=== PATIENT | male | born 1935 | race African-American/Black ===

== ENCOUNTER 2016-11-04 09:39 | Inpatient (IN) | payer MEDICARE, MEDICAID ==
[~2016-11-04] VITALS: Ht 165.1 cm; Wt 95.0 kg
[~2016-11-04 09:39] MED LIST: ATOR10TA PO; FERR-63 PO; FURO-151 PO; PIOG30TA2 PO; POTA10TA15 PO
[2016-11-04] MEDS ORDERED: SODIUM CHLORIDE 0.9% 500 ML IV ONE (10:04)
[2016-11-04 11:01] LABS: BASOPHILS % 0.6 % (0.0-2.0); EOSINOPHILS % 1.6 % (0.0-5.0); HEMATOCRIT. 22.9 % (42.0-52.0); HEMOGLOBIN. 7.4 g/dL (14.0-18.0); LYMPHOCYTES % 12.9 % (20.0-50.0); MEAN CORPUSCULAR HEMOGLOBIN 28.4 pg (28.0-32.0); MEAN CORPUSCULAR HGB CONC 32.5 g/dL (31.0-37.0); MEAN CORPUSCULAR VOLUME 87.3 fL (80.0-94.0); MEAN PLATELET VOLUME 7.2 fl (7.4-10.4); MONOCYTES % 9.5 % (2.0-8.0); NEUTROPHILS % 75.4 % (40.0-76.0); PLATELET 266 x1000/uL (130-400); RED BLOOD CELL COUNT 2.62 mill/uL (4.7-6.1); RED CELL DISTRIBUTION WIDTH 16.1 % (11.6-14.6); WHITE BLOOD COUNT 3.9 x1000/uL (4.5-11.0)
[2016-11-04 11:09] LABS: INR 1.2; PROTHROMBIN TIME 12.1 sec
[2016-11-04 11:15] LABS: ALANINE AMINOTRANSFERASE 11 IU/L (13-61); ALBUMIN 2.4 g/dL (3.4-5.0); ANION GAP 10; CALCIUM 9.7 mg/dL (8.5-10.1); CARBON DIOXIDE 33 mEq/L (21-32); CHLORIDE 103 mEq/L (98-107); INDEX HEMOLYSI 1 (1-3); INDEX ICTERIC 1 (1-4); INDEX LIPEMIC 1 (1-3); LIPASE 67 IU/L (73-393); UREA NITROGEN BLOOD 8 mg/dL (7-21); eGFR > 60 mL/min (>60)
[2016-11-04 12:29] LABS: CLARITY URINE TURBID (CLEAR); GLUCOSE URINE NEGATIVE (NEGATIVE); KETONES URINE NEGATIVE (NEGATIVE); LEUKOCYTE ESTERASE URINE 1+ (NEGATIVE); NITRITE URINE POSITIVE (NEGATIVE); OCCULT BLOOD URINE 2+ (NEGATIVE); PH URINE 5.5 (4.5-8.0); PROTEIN URINE 2+ (NEGATIVE); SPECIFIC GRAVITY URINE 1.028 (1.005-1.030)
[2016-11-04 12:31] LABS: COLOR URINE BLOODY (YELLOW)
[2016-11-04 12:40] LABS: RBC URINE TNTC /hpf (0-2)
[2016-11-04 12:41] LABS: BACTERIA URINE 4+; SQUAMOUS EPITHELIAL CELL URINE NONE SEEN /lpf (RARE/1+)
[2016-11-04] MEDS ORDERED: CEFTRIAXONE 1 G PREMIX 50 ML IV ONE (13:30)
[2016-11-04] MEDS ORDERED: LEVOFLOXACIN 500MG PREMIX 100 ML IV SCH (16:30)
[2016-11-04] MEDS: HYDROCODONE/ACETAMINOPHEN 5/325MG TABLET PO PRN ×2 (16:45→22:26)
[2016-11-04] MEDS: DEXT 5%/0.45% NACL KCL 10MEQ/L 1,000 ML IV SCH (18:16)
[2016-11-04 20:30] VITALS: BP 112/67
[2016-11-04] MEDS ORDERED: DEXTROSE 50% WATER 50ML SYRINGE IV PRN (22:00)
[2016-11-05] VITALS (11 sets, daily range): BP systolic 95–130; BP diastolic 59–81
[2016-11-05] MEDS: LEVOFLOXACIN 500MG PREMIX 100 ML IV SCH (03:04)
[2016-11-05] MEDS: HYDROCODONE/ACETAMINOPHEN 5/325MG TABLET PO PRN ×3 (03:31→23:19)
[2016-11-05] MEDS: BLOOD SUGAR DIAGNOSTIC STRIP TEST SCH ×4 (06:14→21:45)
[2016-11-05] MEDS: DEXT 5%/0.45% NACL KCL 10MEQ/L 1,000 ML IV SCH (06:14)
[2016-11-05 06:44] LABS: CHLORIDE 102 mEq/L (98-107); INDEX HEMOLYSI 3 (1-3); INDEX ICTERIC 1 (1-4); INDEX LIPEMIC 1 (1-3)
[2016-11-05 06:52] LABS: ALANINE AMINOTRANSFERASE 12 IU/L (13-61); ALBUMIN 2.7 g/dL (3.4-5.0); ANION GAP 14; CALCIUM 9.7 mg/dL (8.5-10.1); CARBON DIOXIDE 28 mEq/L (21-32); UREA NITROGEN BLOOD 12 mg/dL (7-21); eGFR > 60 mL/min (>60)
[2016-11-05] MEDS: INSULIN LISPRO 100 UNITS/ML SUBCUT SCH ×4 (07:07→21:00)
[2016-11-05 08:39] LABS: BASOPHILS % 0.9 % (0.0-2.0); EOSINOPHILS % 0.6 % (0.0-5.0); HEMATOCRIT. 31.3 % (42.0-52.0); HEMOGLOBIN. 10.3 g/dL (14.0-18.0); LYMPHOCYTES % 7.6 % (20.0-50.0); MEAN CORPUSCULAR HEMOGLOBIN 28.6 pg (28.0-32.0); MEAN CORPUSCULAR VOLUME 86.6 fL (80.0-94.0); MONOCYTES % 6.6 % (2.0-8.0); NEUTROPHILS % 84.3 % (40.0-76.0); RED BLOOD CELL COUNT 3.61 mill/uL (4.7-6.1); RED CELL DISTRIBUTION WIDTH 16.9 % (11.6-14.6); WHITE BLOOD COUNT 8.1 x1000/uL (4.5-11.0)
[2016-11-05 08:42] LABS: DIFFERENTIAL COMMENT 1
[2016-11-05 10:46] LABS: MEAN PLATELET VOLUME 8.2 fl (7.4-10.4); PLATELET 269 x1000/uL (130-400)
[2016-11-05] MEDS ORDERED: DEXT 5%/0.45% NACL KCL 10MEQ/L 1,000 ML IV SCH (23:00)
[2016-11-06] VITALS: BP 124/71
[2016-11-06] MEDS: LEVOFLOXACIN 500MG PREMIX 100 ML IV SCH (01:32)
[2016-11-06 04:00] VITALS: BP 120/70
[2016-11-06 06:48] LABS: BASOPHILS % 0.2 % (0.0-2.0); EOSINOPHILS % 1.4 % (0.0-5.0); HEMATOCRIT. 27.2 % (42.0-52.0); HEMOGLOBIN. 8.8 g/dL (14.0-18.0); LYMPHOCYTES % 7.9 % (20.0-50.0); MEAN CORPUSCULAR HEMOGLOBIN 27.7 pg (28.0-32.0); MEAN CORPUSCULAR HGB CONC 32.3 g/dL (31.0-37.0); MEAN CORPUSCULAR VOLUME 85.7 fL (80.0-94.0); MEAN PLATELET VOLUME 7.3 fl (7.4-10.4); MONOCYTES % 7.1 % (2.0-8.0); NEUTROPHILS % 83.4 % (40.0-76.0); PLATELET 269 x1000/uL (130-400); RED BLOOD CELL COUNT 3.18 mill/uL (4.7-6.1); RED CELL DISTRIBUTION WIDTH 16.2 % (11.6-14.6); WHITE BLOOD COUNT 5.8 x1000/uL (4.5-11.0)
[2016-11-06] MEDS: BLOOD SUGAR DIAGNOSTIC STRIP TEST SCH ×4 (06:53→21:29)
[2016-11-06] MEDS: INSULIN LISPRO 100 UNITS/ML SUBCUT SCH ×4 (06:54→21:29)
[2016-11-06 07:07] LABS: ALANINE AMINOTRANSFERASE 12 IU/L (13-61); ALBUMIN 2.5 g/dL (3.4-5.0); ANION GAP 11; CARBON DIOXIDE 30 mEq/L (21-32); CHLORIDE 102 mEq/L (98-107); INDEX HEMOLYSI 1 (1-3); INDEX ICTERIC 1 (1-4); INDEX LIPEMIC 1 (1-3); UREA NITROGEN BLOOD 13 mg/dL (7-21); eGFR > 60 mL/min (>60)
[2016-11-06 10:01] VITALS: BP 113/65
[2016-11-06] MEDS ORDERED: POTASSIUM CHLORIDE 20MEQ TABLET SR PO SCH (11:45)
[2016-11-06] MEDS: TAMSULOSIN HCL 0.4MG SR CAPSULE PO SCH (12:29)
[2016-11-06 12:37] VITALS: BP 111/75
[2016-11-06 16:10] VITALS: BP 102/65
[2016-11-06 20:00] VITALS: BP 99/62
[2016-11-06] MEDS: ACETAMINOPHEN 325MG TABLET PO PRN (22:17)
[2016-11-07] VITALS: BP 136/81
[2016-11-07] MEDS: LEVOFLOXACIN 500MG PREMIX 100 ML IV SCH (02:56)
[2016-11-07 04:00] VITALS: BP 130/75
[2016-11-07 06:18] LABS: BASOPHILS % 0.4 % (0.0-2.0); EOSINOPHILS % 1.2 % (0.0-5.0); HEMATOCRIT. 26.2 % (42.0-52.0); HEMOGLOBIN. 8.6 g/dL (14.0-18.0); LYMPHOCYTES % 12.8 % (20.0-50.0); MEAN CORPUSCULAR HEMOGLOBIN 27.8 pg (28.0-32.0); MEAN CORPUSCULAR HGB CONC 32.6 g/dL (31.0-37.0); MEAN CORPUSCULAR VOLUME 85.4 fL (80.0-94.0); MEAN PLATELET VOLUME 7.2 fl (7.4-10.4); MONOCYTES % 8.4 % (2.0-8.0); NEUTROPHILS % 77.2 % (40.0-76.0); PLATELET 245 x1000/uL (130-400); RED BLOOD CELL COUNT 3.07 mill/uL (4.7-6.1); RED CELL DISTRIBUTION WIDTH 16.7 % (11.6-14.6); WHITE BLOOD COUNT 5.2 x1000/uL (4.5-11.0)
[2016-11-07 07:15] LABS: ALANINE AMINOTRANSFERASE 15 IU/L (13-61); ALBUMIN 2.4 g/dL (3.4-5.0); ANION GAP 10; CARBON DIOXIDE 30 mEq/L (21-32); CHLORIDE 102 mEq/L (98-107); INDEX HEMOLYSI 1 (1-3); INDEX ICTERIC 1 (1-4); INDEX LIPEMIC 1 (1-3); MAGNESIUM 1.7 mg/dL (1.8-2.4); UREA NITROGEN BLOOD 14 mg/dL (7-21); eGFR > 60 mL/min (>60)
[2016-11-07] MEDS: BLOOD SUGAR DIAGNOSTIC STRIP TEST SCH ×3 (07:24→21:00)
[2016-11-07] MEDS: INSULIN LISPRO 100 UNITS/ML SUBCUT SCH ×3 (07:24→21:00)
[2016-11-07 08:00] VITALS: BP 108/66
[2016-11-07] MEDS: TAMSULOSIN HCL 0.4MG SR CAPSULE PO SCH (09:06)
[2016-11-07] MEDS ORDERED: POTASSIUM CHLORIDE 20MEQ TABLET SR PO SCH (09:45)
[2016-11-07] MEDS ORDERED: BISACODYL 10MG SUPP PR PRN (09:45)
[2016-11-07] MEDS ORDERED: LACTULOSE 20G/30ML UDC PO PRN (09:45)
[2016-11-07] MEDS ORDERED: MAGNESIUM GLUCONATE 500MG TABLET PO SCH (11:00)
[2016-11-07] MEDS ORDERED: SODIUM CHLORIDE 0.9% 10ML VIAL ONE (12:24)
[2016-11-07] MEDS ORDERED: IOHEXOL-300 100 ML BOTTLE ONE (12:24)
[2016-11-07 12:45] VITALS: BP 107/71
[2016-11-07 16:00] VITALS: BP 105/65
[2016-11-07] MEDS: HYDROMORPHONE HCL/PF 2MG/ML CPJ IV PRN (16:31)
[2016-11-07 20:00] VITALS: BP 107/69
[2016-11-08] VITALS: BP 119/82
[2016-11-08] MEDS: LEVOFLOXACIN 500MG PREMIX 100 ML IV SCH (02:57)
[2016-11-08 04:00] VITALS: BP 118/68
[2016-11-08 06:44] LABS: BASOPHILS % 0.5 % (0.0-2.0); EOSINOPHILS % 1.8 % (0.0-5.0); HEMATOCRIT. 27.7 % (42.0-52.0); LYMPHOCYTES % 11.3 % (20.0-50.0); MEAN CORPUSCULAR HEMOGLOBIN 27.7 pg (28.0-32.0); MEAN CORPUSCULAR HGB CONC 32.4 g/dL (31.0-37.0); MEAN CORPUSCULAR VOLUME 85.5 fL (80.0-94.0); MEAN PLATELET VOLUME 7.4 fl (7.4-10.4); MONOCYTES % 7.9 % (2.0-8.0); NEUTROPHILS % 78.5 % (40.0-76.0); PLATELET 249 x1000/uL (130-400); RED BLOOD CELL COUNT 3.24 mill/uL (4.7-6.1); RED CELL DISTRIBUTION WIDTH 16.5 % (11.6-14.6); WHITE BLOOD COUNT 5.4 x1000/uL (4.5-11.0)
[2016-11-08] MEDS: BLOOD SUGAR DIAGNOSTIC STRIP TEST SCH ×3 (06:52→21:00)
[2016-11-08] MEDS: INSULIN LISPRO 100 UNITS/ML SUBCUT SCH ×3 (07:21→21:00)
[2016-11-08 07:22] LABS: ALANINE AMINOTRANSFERASE 21 IU/L (13-61); ALBUMIN 2.6 g/dL (3.4-5.0); ANION GAP 12; CARBON DIOXIDE 29 mEq/L (21-32); CHLORIDE 103 mEq/L (98-107); INDEX HEMOLYSI 1 (1-3); INDEX ICTERIC 1 (1-4); INDEX LIPEMIC 1 (1-3); MAGNESIUM 1.9 mg/dL (1.8-2.4); UREA NITROGEN BLOOD 12 mg/dL (7-21); eGFR > 60 mL/min (>60)
[2016-11-08 08:45] VITALS: BP 113/78
[2016-11-08] MEDS: TAMSULOSIN HCL 0.4MG SR CAPSULE PO SCH (09:50)
[2016-11-08] MEDS: HYDROMORPHONE HCL/PF 2MG/ML CPJ IV PRN (09:52)
[2016-11-08 12:48] VITALS: BP 111/75
[2016-11-08 16:35] VITALS: BP 103/66
[2016-11-08 20:00] VITALS: BP 108/62
[2016-11-09] VITALS: BP 113/70
[2016-11-09] MEDS: LEVOFLOXACIN 500MG PREMIX 100 ML IV SCH (03:10)
[2016-11-09 04:00] VITALS: BP 114/73
[2016-11-09 06:03] LABS: BASOPHILS % 0.2 % (0.0-2.0); HEMATOCRIT. 25.2 % (42.0-52.0); HEMOGLOBIN. 8.2 g/dL (14.0-18.0); LYMPHOCYTES % 9.2 % (20.0-50.0); MEAN CORPUSCULAR HEMOGLOBIN 27.8 pg (28.0-32.0); MEAN CORPUSCULAR HGB CONC 32.4 g/dL (31.0-37.0); MEAN CORPUSCULAR VOLUME 85.8 fL (80.0-94.0); MEAN PLATELET VOLUME 7.2 fl (7.4-10.4); NEUTROPHILS % 80.6 % (40.0-76.0); PLATELET 211 x1000/uL (130-400); RED BLOOD CELL COUNT 2.93 mill/uL (4.7-6.1); RED CELL DISTRIBUTION WIDTH 16.4 % (11.6-14.6); WHITE BLOOD COUNT 5.4 x1000/uL (4.5-11.0)
[2016-11-09 06:39] LABS: CHLORIDE 102 mEq/L (98-107); INDEX HEMOLYSI 1 (1-3); INDEX ICTERIC 1 (1-4); INDEX LIPEMIC 1 (1-3)
[2016-11-09 06:46] LABS: ALANINE AMINOTRANSFERASE 20 IU/L (13-61); ALBUMIN 2.4 g/dL (3.4-5.0); ANION GAP 11; CARBON DIOXIDE 29 mEq/L (21-32); MAGNESIUM 1.8 mg/dL (1.8-2.4); UREA NITROGEN BLOOD 12 mg/dL (7-21); eGFR > 60 mL/min (>60)
[2016-11-09] MEDS: BLOOD SUGAR DIAGNOSTIC STRIP TEST SCH ×4 (07:20→21:02)
[2016-11-09] MEDS: INSULIN LISPRO 100 UNITS/ML SUBCUT SCH ×4 (07:50→21:00)
[2016-11-09 08:00] VITALS: BP 114/74
[2016-11-09] MEDS: TAMSULOSIN HCL 0.4MG SR CAPSULE PO SCH (09:06)
[2016-11-09 12:00] VITALS: BP 138/85
[2016-11-09 16:00] VITALS: BP 126/80
[2016-11-09 20:00] VITALS: BP 114/75
[2016-11-10 00:15] VITALS: BP 101/58
[2016-11-10] MEDS: ATENOLOL 25MG TABLET PO SCH ×4 (00:15→17:12)
[2016-11-10] MEDS: LEVOFLOXACIN 500MG PREMIX 100 ML IV SCH (02:54)
[2016-11-10 04:00] VITALS: BP 110/67
[2016-11-10] MEDS: BLOOD SUGAR DIAGNOSTIC STRIP TEST SCH ×4 (06:19→21:12)
[2016-11-10] MEDS: INSULIN LISPRO 100 UNITS/ML SUBCUT SCH ×4 (06:28→21:12)
[2016-11-10 06:33] LABS: BASOPHILS % 0.4 % (0.0-2.0); EOSINOPHILS % 1.3 % (0.0-5.0); HEMATOCRIT. 25.2 % (42.0-52.0); HEMOGLOBIN. 8.2 g/dL (14.0-18.0); MEAN CORPUSCULAR HEMOGLOBIN 27.7 pg (28.0-32.0); MEAN CORPUSCULAR HGB CONC 32.5 g/dL (31.0-37.0); MEAN CORPUSCULAR VOLUME 85.3 fL (80.0-94.0); MEAN PLATELET VOLUME 7.2 fl (7.4-10.4); MONOCYTES % 9.9 % (2.0-8.0); NEUTROPHILS % 76.4 % (40.0-76.0); PLATELET 215 x1000/uL (130-400); RED BLOOD CELL COUNT 2.95 mill/uL (4.7-6.1); RED CELL DISTRIBUTION WIDTH 16.6 % (11.6-14.6); WHITE BLOOD COUNT 4.8 x1000/uL (4.5-11.0)
[2016-11-10 06:40] LABS: ANION GAP 9; CALCIUM 9.6 mg/dL (8.5-10.1); CARBON DIOXIDE 30 mEq/L (21-32); CHLORIDE 103 mEq/L (98-107); INDEX HEMOLYSI 1 (1-3); INDEX ICTERIC 1 (1-4); INDEX LIPEMIC 1 (1-3); UREA NITROGEN BLOOD 11 mg/dL (7-21); eGFR > 60 mL/min (>60)
[2016-11-10 08:00] VITALS: BP 97/65
[2016-11-10] MEDS: TAMSULOSIN HCL 0.4MG SR CAPSULE PO SCH (08:44)
[2016-11-10] MEDS ORDERED: NORMAL SALINE 0.9% 10 ML SYR ONE (09:19)
[2016-11-10] MEDS ORDERED: FENTANYL CITRATE/PF 50MCG/ML 2ML VIAL ONE (09:33)
[2016-11-10] MEDS ORDERED: MIDAZOLAM HCL 2 MG/2 ML VIAL ONE (09:34)
[2016-11-10] MEDS ORDERED: ONDANSETRON HCL 4MG/2ML VIAL IV PRN (10:00)
[2016-11-10] MEDS ORDERED: LABETALOL HCL 20MG/4ML CARPUJECT IV PRN (10:00)
[2016-11-10] MEDS ORDERED: HYDROMORPHONE HCL/PF 2MG/ML CPJ IV PRN (10:00)
[2016-11-10] MEDS ORDERED: MEPERIDINE HCL/PF 25MG/ML CPJ IV PRN (10:00)
[2016-11-10] MEDS ORDERED: EPHEDRINE SULFATE 50MG/ML VIAL ONE (10:15)
[2016-11-10] MEDS ORDERED: ONDANSETRON HCL 4MG/2ML VIAL ONE (10:15)
[2016-11-10] MEDS ORDERED: DEXAMETHASONE 4MG/ML 1ML VIAL ONE (10:15)
[2016-11-10] MEDS ORDERED: SODIUM CHLORIDE 0.9% 10ML VIAL ONE (10:15)
[2016-11-10 12:00] VITALS: BP 99/60
[2016-11-10 16:00] VITALS: BP_SYST 110; BP_SYST 98; BP_DIAS 62; BP_DIAS 76
[2016-11-10] MEDS ORDERED: ACETAMINOPHEN 650MG/20.3ML UDC PO PRN (18:00)
[2016-11-10] MEDS ORDERED: TRAMADOL 50MG TABLET PO PRN (18:10)
[2016-11-10 20:52] VITALS: BP 90/45
[2016-11-10] MEDS: ACETAMINOPHEN 325MG TABLET PO PRN (23:41)
[2016-11-11] VITALS: BP 112/75
[2016-11-11] MEDS: LEVOFLOXACIN 500MG PREMIX 100 ML IV SCH (03:00)
[2016-11-11 04:00] VITALS: BP 115/67
[2016-11-11] MEDS: BLOOD SUGAR DIAGNOSTIC STRIP TEST SCH (06:40)
[2016-11-11] MEDS: INSULIN LISPRO 100 UNITS/ML SUBCUT SCH (07:50)
[2016-11-11 08:30] VITALS: BP 105/61
[2016-11-11] MEDS: ATENOLOL 25MG TABLET PO SCH (08:55)
[2016-11-11] MEDS: TAMSULOSIN HCL 0.4MG SR CAPSULE PO SCH (08:57)
[2016-11-11 12:10] VITALS: BP 102/73
[2016-11-11 16:46] VITALS: BP 111/63
[2016-11-11 17:08] VITALS: BP 111/63
[2016-11-12] MEDS ORDERED: LEVOFLOXACIN 500MG TABLET PO SCH (11:00)
== END 2016-11-11 17:45 | disposition home or self-care (01) | DRG 665 ==
LOC: ER 09:46 → 6WST 11:57
PROVIDERS: ADMIT Hospitalist; ATTEND Hospitalist
PROC: 30233N1 Transfusion of Nonautologous Red Blood Cells into Peripheral Vein, Percutaneous Approach (ICD-10-PCS; 2016-11-04)
PROC: 0TJB8ZZ Inspection of Bladder, Via Natural or Artificial Opening Endoscopic (ICD-10-PCS; 2016-11-10)
PROC: 0VT08ZZ Resection of Prostate, Via Natural or Artificial Opening Endoscopic (ICD-10-PCS; principal; 2016-11-10 09:00)
DX: N30.01 Acute cystitis with hematuria (principal); E43 Unspecified severe protein-calorie malnutrition; D62 Acute posthemorrhagic anemia; C34.90 Malignant neoplasm of unspecified part of unspecified bronchus or lung; N39.0 Urinary tract infection, site not specified; N40.0 Benign prostatic hyperplasia without lower urinary tract symptoms; D63.8 Anemia in other chronic diseases classified elsewhere; E78.00 Pure hypercholesterolemia, unspecified; E87.6 Hypokalemia; E11.9 Type 2 diabetes mellitus without complications; I10 Essential (primary) hypertension; K64.9 Unspecified hemorrhoids; N30.91 Cystitis, unspecified with hematuria; N50.0 Atrophy of testis; R04.0 Epistaxis; Z85.118 Personal history of other malignant neoplasm of bronchus and lung; Z92.21 Personal history of antineoplastic chemotherapy; Z92.3 Personal history of irradiation; Z87.891 Personal history of nicotine dependence; Z99.81 Dependence on supplemental oxygen; Z68.34 Body mass index [BMI] 34.0-34.9, adult; Z79.899 Other long term (current) drug therapy; R31.0 Gross hematuria
CPT/HCPCS: 36415; 74178; 76770; 80048; 80053; 81001; 82962; 83690; 83735; 85025; 85610; 86850; 86900; 86920; 87086; 93005; 96361; 96365; 97116; 97162; 99285; A4216; C1893; J0171; J0696; J1100; J1170; J1815; J1956; J2250; J2405; J3010; J7030; J7040; J7050; P9016; Q9967; A4315